=== PATIENT | female | born 1940 | race Caucasian/White ===

== ENCOUNTER 2020-09-25 06:07 | Day surgery (SDC) | payer MEDICARE, MEDICAID, SELFPAY ==
[2020-09-25] VITALS (9 sets, daily range): BP systolic 134–186; BP diastolic 53–80; PULSE 66–76; RESP 16; TEMP 36.1–37; O2SAT 92–96; BMI 36.9
[2020-09-25] MEDS: Vancomycin IV 1,000 MG/200 ML BAG 200 MG IV (07:35)
[2020-09-25] MEDS: Lactated Ringers 1,000 ML 100 ML IV (07:36)
--- NOTE | 2020-09-25 08:33 | HP.PCM_ITS ---
HPI - General HPI Narrative MANNY LAST, is a 80 F who presents for [facility] stage I for diagnosis of urge incontinence, nocturia and nocturnal enuresis. She has failed level 1 and 2 therapies and has had cystoscopy and urodynamics. Informed consent has been obtained. ON LICENSE OF [facility] Medical History (Updated 09/25/20 @ 08:[address] Chandni Henry MD) Ambulates with cane Anemia Back pain CPAP (continuous positive airway pressure) dependence Diabetes Gastric reflux Gout History of bleeding ulcers History of edema History of IBS History of stress test History of ulceration Hypertension Insulin dependent diabetes mellitus Nocturia Nocturnal enuresis Non-smoker Post-menopausal Rash Sleep apnea Urge incontinence Wears glasses Home Medications acetaminophen 325 mg PO Q6H PRN 09/18/20 [History Last Taken Unknown] alendronate 70 mg PO QWEEK 09/18/20 [History Last Taken Unknown] allopurinol 300 mg PO DAILY 09/18/20 [History Last Taken Unknown] ciclopirox 1 applic TOPICAL PRN PRN 09/18/20 [History Last Taken Unknown] clonidine HCl 0.2 mg PO BID 09/18/20 [History Last Taken Unknown] empagliflozin [Jardiance] 10 mg PO DAILY 09/18/20 [History Last Taken Unknown] exenatide microspheres [Bydureon] 2 mg SUBCUT QWEEK 09/18/20 [History Last Taken Unknown] metoprolol succinate 100 mg PO DAILY 09/18/20 [History Last Taken 09/25/20 05:00] pantoprazole 40 mg PO DAILY 09/18/20 [History Last Taken 09/25/20 05:00] pregabalin 100 mg PO QHS 09/18/20 [History Last Taken Unknown] verapamil 180 mg PO DAILY 09/18/20 [History Last Taken Unknown] Allergy/AdvReac Type Severity Reaction Status Date / Time No Known Allergies Allergy Verified 09/25/20 07:23 Social History Smoking Status: Never smoker ROS ROS Narrative She denies fever, chills, fatigue or malaise. No change in vision, hearing and no difficulty swallowing. No shortness of breath, cough or increased sputum production. No chest pain, irregular heartbeat or heart racing. No abdominal pain, nausea, vomiting, diarrhea or blood in her stool. No increase in back pain, arthritis, no change in mobility. No new skin lesions, rashes or concerns. No edema, lymphedema. No other changes in neurologic, psychiatric, endocrine or immunologic status. Vital Signs Vital Signs Vital Signs: 09/25/20 07:24 Temperature 98.6 F Temperature Source Temporal Pulse Rate 76 Respiratory Rate 16 Respiratory Pattern Normal Blood Pressure 186/80 H Blood Pressure Mean 115 Blood Pressure Source Monitor Blood Pressure Position Supine Blood Pressure Location Left Arm Pulse Ox 94 Oxygen Delivery Method Room Air Weight Weight: 85.8 kg Body Mass Index (BMI) 36.9 Physical Exam Const alert, oriented x3 and no apparent distress HEENT normocephalic, head/scalp atraumatic, hearing grossly normal bilaterally, external ears normal, external nose normal and moist oral mucous membranes Eyes conjunctivae normal and no scleral icterus General Eye: normal appearance of both eyes Neck supple General: normal visual inspection and trachea midline Lymph Lymphatic: no lymphedema noted Chest inspection of chest normal Chest: symmetrical chest wall rise Resp normal respiratory effort, normal air movement, no retractions and no use of accessory muscles Cardio regular rate and regular rhythm GI soft to palpation, non-tender and non-distended no CVA tenderness and external exam normal Back/Spine no CVA tenderness and normal to inspection Extremity normal to inspection and no calf tenderness Skin no rashes or lesions noted, no wounds, skin turgor normal, no jaundice, no yefri chiae and no mottling Neuro oriented x3, CN's II-XII intact bilaterally and moves all extremities Psych mental status grossly normal, thought process normal, cooperative and affect normal Assessment & Plan Assessment/Plan (1) Nocturia: PLAN: Proceed with InterStim stage I as scheduled (2) Urge incontinence: (3) Nocturnal enuresis: Procedure Criteria Type of Procedure Procedure Type: Elective Elective Risks - COVID COVID Risk Discussion: The surgeon/proceduralist and patient have discussed in detail the risk of exposure to and/or potential harm posed by the COVID-19 virus with having a surgery/procedure at this time versus the risk of delaying the surgery/procedure. It is not possible to know either the risk of delaying the surgery or procedure or chance of getting an infection with perfect accuracy, but a joint decision was made between the patient and the surgeon/proceduralist to proceed at this time with the scheduled surgery/procedure as indicated on the consent form.
--- NOTE | 2020-09-25 08:38 | PCM.OPRPT ---
Problems Associated Problem List Diagnoses (1) Nocturnal enuresis: (2) Urge incontinence: (3) Nocturia: Report of Operation Date of Procedure: 09/25/20 Pre-Operative Diagnosis: Urge incontinence, nocturia, nocturnal enuresis Post-Operative Diagnosis: Same Surgery/Procedure Performed:: InterStim stage I Surgeon: Chandni Henry Type of Anesthesia: MAC Description of Procedure: The patient is a 80-year-old female who has failed level 1 and 2 management for her incontinence, nocturia and nocturnal enuresis. She is also had Botox. She now presents for stage I InterStim trial. Informed consent was obtained. The patient was taken to the operating room placed on the operating room table. Anesthesia monitored the head, neck, airway, IV access and vital signs throughout the case. The patient was positioned in prone fashion and was appropriately padded and secured to the table. Once this was done, anesthesia was administered and she was prepped and draped in usual sterile fashion. Fluoroscopy was used for visualization of the sacrum. The patient's right side was selected for implantation side of the lead and pocket site. The skin overlying the S3 foramen site was infiltrated with lidocaine. The needle was then inserted through the selected position and into the S3 foramen. Good ryan and toe flexion were achieved. At this time the obturator was removed and the guidewire was placed. Skin incision was made. The pocket site was infiltrated with lidocaine and an incision was made. Bovie cautery was used for hemostasis and pocket formation. The lead was then tunneled into the pocket site. The tunneler was then placed from the pocket to the contralateral side where another skin incision was made. The lead extension was connected and pulled into the pocket site. The lead was dried and inserted into the lead extension and secured using the torque wrench. The lead extension was coiled and secured using a Prolene suture. It was then buried into the pocket site and this was closed with 3-0 interrupted Vicryl followed by 4-0 subcuticular suturing. The lead insertion site was closed with a 4-0 subcuticular Vicryl. Skin glue was then applied and allowed to dry completely. The battery was attached to the lead extension and sponge gauze was placed. This was then covered by an OpSite followed by cloth tape. The patient was then awakened and taken to the recovery room in good condition. There were no complications during this procedure. Grafts/Implants Used: InterStim lead and lead extension Complications None Admit VTE Documentation VTE Present on Admission: No VTE Mechan Device Prophylaxis: None VTE Pharm Prophylaxis ordered?: No Reason prophylaxis not ordered:: Treatment Not Indicated
--- NOTE | 2020-09-25 08:39 | PCM.DC ---
Discharge Instructions Diet Discharge Diet: No restrictions Activity Discharge Activity: May Not Shower May resume sexual activity in: 3 weeks Dressing / Incision Call your doctor if your incision/area has: Continuous Slow Oozing, Sudden Increased Bleeding, Increased Pain/ Swelling, Increased Redness, Foul Smelling Discharge and Swelling at the incision site Call your doctor if you observe: Fever of 101 or Higher, Inability to urinate, Inability to have a bowel movement, Calf discomfort and Uncontrolled pain Suture Line Care: Avoid Pulling/Pushing and Avoid Pinching/Bending Change Dressing in: do not change dressing Cleanse incision/area with: Do not get Incision Wet and Keep Dressing Clean & Dry Follow Up Care Please Follow Up With: Chandni Henry MD When: in 1 week. Test Results: Test results from this visit will be discussed in further detail at your follow-up appointment, if applicable. Discharge Plan Admission Attending Provider: Chadnni Henry Discharge Orders/Prescriptions Prescriptions: New oxycodone-acetaminophen [oxycodone-acetaminophen] 1 TABLET tablet 1 tab PO Q8H PRN PRN (Reason: Pain) 7 Days Qty: 20 RF: 0 cephalexin [cephalexin] 500 MG capsule 500 mg PO Q12 3 Days Qty: 6 RF: 0 Continued acetaminophen 325 mg Tablet 325 mg PO Q6H PRN (Reason: Pain) RF: 0 alendronate 70 mg tablet 70 mg PO QWEEK RF: 0 metoprolol succinate 100 mg tablet extended release 24 hr 100 mg PO DAILY RF: 0 verapamil 180 mg capsule,ext rel. pellets 24 hr 180 mg PO DAILY RF: 0 clonidine HCl 0.2 mg tablet 0.2 mg PO BID RF: 0 pantoprazole 40 mg tablet,delayed release (DR/EC) 40 mg PO DAILY RF: 0 allopurinol 300 mg tablet 300 mg PO DAILY RF: 0 ciclopirox 0.77 % cream 1 applic TOPICAL PRN PRN (Reason: Rash) RF: 0 pregabalin 100 mg capsule 100 mg PO QHS RF: 0 exenatide microspheres 2 mg/0.65 mL Pen Injector 2 mg SUBCUT QWEEK RF: 0 Jardiance 10 mg tablet 10 mg PO DAILY RF: 0 Referrals / Follow Up: MARIBETH FITCH [Other] Disposition Disposition (needs filled in before D/C Order can be placed): Home, Self Care
--- NOTE | 2020-09-25 08:50 | RAD_ITS ---
STUDY: X-RAY - PELVIS REASON FOR EXAM: Female, 80 years old. Intraoperative digital documentation images. TECHNIQUE: 2 intraoperative digital documentation images were performed. COMPARISON: None. FINDINGS: 2 intraoperative digital documentation images show a wire extending to the sacrum. RAD/Pelvis 1 or 2 Views IMPRESSION: Intraoperative digital documentation images as described. Electronically Signed: Sinan Molina MD at 9:52 EDT , Service support ,
[2020-09-25] MEDS: Lidocaine 1% /Epi 1:100 (20ml) 20 ML Vial (09:04)
[2020-09-25 10:11] LABS: Bedside Glucose 132 mg/dL (70-110)
== END 2020-09-25 11:57 | disposition home or self-care (01) ==
LOC: SDC 06:10 → AC 06:11
PROVIDERS: Referring Provider Urology; Visit Provider Urology
PROC: (CPT 64581; principal; 2020-09-25 08:40)
DX: N39.44 Nocturnal enuresis (principal); N39.41 Urge incontinence; R35.1 Nocturia; I10 Essential (primary) hypertension; E11.9 Type 2 diabetes mellitus without complications; G47.30 Sleep apnea, unspecified; K21.9 Gastro-esophageal reflux disease without esophagitis; Z79.4 Long term (current) use of insulin; M10.9 Gout, unspecified; D64.9 Anemia, unspecified; K58.9 Irritable bowel syndrome, unspecified
CPT/HCPCS: 00630; 64581; 72170; 76000; 82962; J7120; J2405

== ENCOUNTER 2020-10-09 06:32 | Day surgery (SDC) | payer MEDICARE, MEDICAID, SELFPAY ==
[2020-10-09] VITALS (10 sets, daily range): BP systolic 112–148; BP diastolic 54–86; PULSE 57–66; RESP 16–18; TEMP 35.9–36.9; O2SAT 91–95; BMI 36.3
[2020-10-09] MEDS: Lactated Ringers 1,000 ML 100 ML IV (07:42)
[2020-10-09 08:21] LABS: Bedside Glucose 108 mg/dL (70-110)
--- NOTE | 2020-10-09 08:27 | PCM.DC ---
Discharge Instructions Diet Discharge Diet: No restrictions Activity Discharge Activity: Return to Normal Activity May resume sexual activity in: 1-2 weeks Dressing / Incision Call your doctor if your incision/area has: Continuous Slow Oozing, Sudden Increased Bleeding, Increased Pain/ Swelling, Increased Redness, Foul Smelling Discharge and Swelling at the incision site Call your doctor if you observe: Fever of 101 or Higher, Inability to urinate, Inability to have a bowel movement and Uncontrolled pain Suture Line Care: Avoid Pulling/Pushing and Avoid Pinching/Bending Remove Dressing in: do not remove dressing Cleanse incision/area with: Keep Dressing Clean & Dry Follow Up Care Please Follow Up With: Chandni Henry MD When: in 2-3 weeks in the office, call for appt Test Results: Test results from this visit will be discussed in further detail at your follow-up appointment, if applicable. Discharge Plan Admission Attending Provider: Chandni Henry Discharge Orders/Prescriptions Prescriptions: New oxycodone-acetaminophen [oxycodone-acetaminophen] 1 TABLET tablet 2 tab PO Q8H PRN PRN (Reason: Pain) 7 Days Qty: 20 RF: 0 cephalexin [cephalexin] 500 MG capsule 500 mg PO Q12 3 Days Qty: 6 RF: 0 Continued acetaminophen 325 mg Tablet 325 mg PO Q6H PRN (Reason: Pain) RF: 0 alendronate 70 mg tablet 70 mg PO QWEEK RF: 0 metoprolol succinate 100 mg tablet extended release 24 hr 100 mg PO DAILY RF: 0 verapamil 180 mg capsule,ext rel. pellets 24 hr 180 mg PO DAILY RF: 0 clonidine HCl 0.2 mg tablet 0.2 mg PO BID RF: 0 pantoprazole 40 mg tablet,delayed release (DR/EC) 40 mg PO DAILY RF: 0 allopurinol 300 mg tablet 300 mg PO DAILY RF: 0 ciclopirox 0.77 % cream 1 applic TOPICAL PRN PRN (Reason: Rash) RF: 0 pregabalin 100 mg capsule 100 mg PO QHS RF: 0 exenatide microspheres 2 mg/0.65 mL Pen Injector 2 mg SUBCUT QWEEK RF: 0 Jardiance 10 mg tablet 10 mg PO DAILY RF: 0 oxycodone-acetaminophen 1 TABLET tablet 1 tab PO Q8H PRN PRN (Reason: Pain) 7 Days Qty: 20 RF: 0 cephalexin 500 MG capsule 500 mg PO Q12 3 Days Qty: 6 RF: 0 Referrals / Follow Up: MARIBETH FITCH [Other] Disposition Disposition (needs filled in before D/C Order can be placed): Home, Self Care
--- NOTE | 2020-10-09 08:30 | OP.PCM_ITS ---
Problems Associated Problem List Diagnoses (1) Nocturnal enuresis: (2) Urge incontinence: (3) Nocturia: Report of Operation Date of Procedure: 10/09/20 Pre-Operative Diagnosis: Urge incontinence, nocturnal enuresis, nocturia Post-Operative Diagnosis: Same Surgery/Procedure Performed:: InterStim stage II Surgeon: Chandni Henry Type of Anesthesia: MAC Description of Procedure: Patient is a 80-year-old female who successfully passed InterStim stage I trial over the last 2 weeks. She is gone from 4 pads a day down to 1. She is very pleased with the results and excited to have the implantation completed. Informed consent was obtained. The patient was taken to the operating room and placed in a prone position on the operating room table. She was appropriately padded and secured to the table. Anesthesia monitored the head, neck, airway, IV access and vital signs throughout the case. Once anesthesia was appropriately administered, the patient was prepped and draped in usual sterile fashion. The incision over the pocket site was carefully opened to avoid injury to the lead. The boot was brought into the operative field. The lead was released using the torque wrench. The lead extension was then cut and removed from the operative field and from underneath by staff. At this time the pocket site was enlarged and hem ostasis was obtained using Bovie cautery. The lead was inserted into the battery and secured using the torque wrench. The battery was then placed into the pocket site which was tested for impedances then. This being successful, the incision was closed with 3-0 interrupted Vicryl followed by 4-0 subcuticular suturing and then skin glue. The patient was then awakened and taken to the recovery room in good condition. There were no complications during this procedure. Grafts/Implants Used: InterStim IPG Complications none Admit VTE Documentation VTE Present on Admission: Yes VTE Mechan Device Prophylaxis: SCD's VTE Pharm Prophylaxis ordered?: No Reason prophylaxis not ordered:: Treatment Not Indicated
[2020-10-09] MEDS: Lidocaine 1% /Epi 1:100 (20ml) 20 ML Vial (08:55)
== END 2020-10-09 11:24 | disposition home or self-care (01) ==
LOC: SDC 06:32 → AC 06:33
PROVIDERS: Referring Provider Urology; Visit Provider Urology
PROC: (CPT 64590; principal; 2020-10-09 09:45)
DX: N39.44 Nocturnal enuresis (principal); N39.41 Urge incontinence; R35.1 Nocturia; G47.33 Obstructive sleep apnea (adult) (pediatric); E78.5 Hyperlipidemia, unspecified; E11.9 Type 2 diabetes mellitus without complications
CPT/HCPCS: 00300; 64590; 82962; J7050; J7120; C1767; J2405

== ENCOUNTER → 2025-01-11 | Outpatient (CLI) | payer MEDICARE, MEDICAID, SELFPAY ==
--- NOTE | 2025-01-11 11:59 | NM_ITS ---
PROCEDURE: RENAL SCAN W/ PHARM INTERVENT 01/11/2025 REASON FOR EXAM: BILATERAL CHRONIC HYDRONEPHROSIS TECHNIQUE: Procedure Code: NMRSR Modality: NM Procedure: RENAL SCAN W/ PHARM INTERVENT Technetium-99m DTPA intravenously with planar imaging of the abdomen. Immediate bloodflow and delayed renogram images with computer-reconstructed renogram curves. 10 mg Lasix intravenously 21 minutes after the radiopharmaceutical. RADIOPHARMACEUTICAL: Intravenous administration of 11 mCi technetium 99 M Mag 3. COMPARISON: CT examination of 10/07/2024. FINDINGS: Again seen are distended bilateral renal pelves, again right greater than left. Prompt bilateral renal blood flow is noted. Perfusion: Bilateral renal cortical uptake is nearly symmetric, and activity reaching both collecting systems is also fairly symmetric. Differential function: 40.1 % on the left and 59.9 % on the right. Cortical time to peak: 21.7 minutes on the left and 17.2 minutes on the right. Diuretic T-1/2: 68.6 minutes on the left and 39.1 minutes on the right. Visually, however, satisfactory cortical clearance is likely present bilaterally. NM/Renal Scan w/ Pharm Intervent IMPRESSION: Although calculated graphs do not fully agree, visually, satisfactory bilateral cortical clearance is seen, suggesting no significant degree of obstruction of either renal collecting system. Reading Location: [id number]
== END | disposition home or self-care (01) ==
LOC: NM 11:59
PROVIDERS: PCP Nurse Practitioner Family; Referring Provider Urology; Visit Provider Urology
DX: N13.30 Unspecified hydronephrosis (principal)
CPT/HCPCS: 78708; A9562; J1938